=== PATIENT | male | born 1960 | race Caucasian/White ===

== ENCOUNTER 2018-05-16 07:25 | Emergency (ER) | payer BC ==
[2018-05-16 07:44] VITALS: BP 164/87
[2018-05-16] MEDS ORDERED: Tetan/Diph/Pertus SYR(Tdap)* 0.5 ML SYR(BOOSTRIX) use SYR IM ONE (07:47)
[2018-05-16] MEDS ORDERED: Lidocaine 1%* 5 ML VIAL INJ ONE (07:52)
--- NOTE | 2018-05-16 08:26 | UC ---
Laceration HPI - HPI Summary HPI Summary: Patient got up to go to work this morning and was walking through his house in the dark as he usually does and he struck his head on the corner of a door and sustained a laceration to his left eyebrow. No LOC. Denies headache, nausea, dizziness. Not up-to-date tetanus. 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 Laceration Location: Face - LEFT EYEBROW Mechanism Of Injury: Blunt Trauma Onset/Duration: Sudden Onset, Lasting Hours, Still Present Severity: Moderate Pain Intensity: 3 Pain Scale Used: 0-10 Numeric - Allergies/Home Medications Allergies/Adverse Reactions: Allergies Allergy/AdvReac Type Severity Reaction Status Date / Time No Known Allergies Allergy Verified 05/16/18 07:44 Home Medications: Home Medications Reflux Pill 1 tab PO SEE INSTRUCTIONS 05/16/18 [History] PMH/Surg Hx/FS Hx/Imm Hx Endocrine History: Dyslipidemia Other Cancer History: TESTICULAR - Surgical History Surgical History: Yes Surgery Procedure, Year, and Place: right testicle,right kidney age 21 REMOVED AND LYMPH NODES IN ABDOMEN REMOVED - Family History Known Family History: Positive: Non-Contributory - Social History Alcohol Use: Occasionally Substance Use Type: None Smoking Status (MU): Never Smoked Tobacco Review of Systems All Other Systems Reviewed And Are Negative: Yes Constitutional: Positive: Negative Skin: Positive: Other - LACERATION Respiratory: Positive: Negative Cardiovascular: Positive: Negative Gastrointestinal: Positive: Negative Neurological: Positive: Negative Physical Exam Triage Information Reviewed: Yes Appearance: Well-Appearing, No Pain Distress, Well-Nourished Vital Signs: Initial Vital Signs Temp 97 F 05/16/18 07:38 Pulse 64 05/16/18 07:38 Resp 18 05/16/18 07:38 BP 164/87 05/16/18 07:38 Pulse Ox 97 05/16/18 07:38 Vital Signs Reviewed: Yes Eyes: Positive: Conjunctiva Clear ENT: Positive: Hearing grossly normal Neck: Positive: Supple Respiratory: Positive: No respiratory distress, No accessory muscle use Cardiovascular: Positive: Pulses Normal Abdomen Description: Positive: Soft Musculoskeletal: Positive: No Edema, Other: - NO TENDERNESS OVER ORBITAL BONES Neurological: Positive: Alert Psychological: Positive: Age Appropriate Behavior Skin: Positive: Other - 3.5CM STELLATE LACERATION LEFT EYEBROW Laceration Repair - Laceration Repair 1 Description: Stellate Laceration Size After Repair: Length (cm) - 3.5CM, Width (mm) - 0MM, Depth (mm) - 5MM Modified For Repair: No Type Injection: Local Anesthesia Used: 1.0% Lido Irrigation With Pressure Irrigation Device: Yes Closure Material: Sutures - 8 SIMPLE INTERRUPTED Closure Method: Single Layer Suture Of: Skin Suture Type: Prolene - 5-0 Laceration Course/Dx - Diagnosis Provider Diagnosis: Laceration of left eyebrow, Need for Tdap vaccination Discharge - Sign-Out/Discharge Documenting (check all that apply): Patient Departure All imaging exams completed and their final reports reviewed: No Studies - Discharge Plan Condition: Stable Disposition: HOME Patient Education Materials: Facial Laceration (ED) Referrals: Yolanda Reed ABSTRACTOR [Primary Care Provider] - If Needed Additional Instructions: SEEK FOLLOW-UP IF YOU DEVELOP SPREADING REDNESS OF THE SKIN, PURULENT DRAINAGE, FEVER, INCREASED PAIN OR ANY OTHER CONCERNING SYMPTOMS. RETURN TO HAVE YOUR SUTURES REMOVED IN 10 DAYS GO TO THE ED WITHOUT FAIL IF YOU DEVELOP UNEQUAL PUPILS, VISUAL DISTURBANCE, GAIT INSTABILITY, SPEECH DIFFICULTY, NAUSEA/VOMITING, WORSENING HEADACHE, DIZZINESS, CONFUSION, WEAKNESS OR ANY OTHER CONCERNING SYMPTOMS. FOR YOUR INFORMATION: [facility] [phone] (M-F 8AM-4PM) [email or web address] (FOR HELP, INFO OR TO CONNECT WITH A SUPPORT GROUP) TETANUS IMMUNIZATION GIVEN (TDAP): You have been given an immunization against tetanus. Please record this in your records. In general, a booster is needed only once every 10 years. The tetanus shot protects against tetanus or "lockjaw," which is a complication of certain wound infections (the tetanus shot cannot protect against the actual infection). The immunization site may become warm and red due to local reaction. If this occurs, apply warm compresses and take aspirin or ibuprofen to reduce inflammation and discomfort. Return for evaluation if the reaction becomes severe. - Billing Disposition and Condition Condition: STABLE Disposition: Home
== END 2018-05-16 09:44 | disposition home or self-care (01) ==
LOC: UCEAST 07:25
DX: S01.112A Laceration without foreign body of left eyelid and periocular area, initial encounter (principal); Z23 Encounter for immunization; W22.8XXA Striking against or struck by other objects, initial encounter; Y92.9 Unspecified place or not applicable
CPT/HCPCS: 12011; 12013; 90715; 99211; G0463

== ENCOUNTER 2018-05-26 07:00 | Emergency (ER) | payer BC ==
[2018-05-26 07:09] VITALS: BP 167/90
--- NOTE | 2018-05-26 07:17 | UC ---
HPI Wound/Suture Re-check - HPI Summary HPI Summary: The patient is a 57-year-old male that presents here 10 days after laceration repair to his left eyebrow. He denies any problems or concerns. - History Of Current Complaint Chief Complaint: UCLaceration Stated Complaint: STITCH REMOVAL Time Seen by Provider: 05/26/18 07:11 Hx Obtained From: Patient Onset/Duration: Gradual Onset Severity: Mild Pain Intensity: 0 Pain Scale Used: 0-10 Numeric Procedure Type: laceration repair left eyebrow. - Allergies/Home Medications Allergies/Adverse Reactions: Allergies Allergy/AdvReac Type Severity Reaction Status Date / Time No Known Allergies Allergy Verified 05/26/18 07:09 PMH/Surg Hx/FS Hx/Imm Hx Previously Healthy: Yes Cancer History: Other - testicular CA - Surgical History Surgical History: Yes Surgery Procedure, Year, and Place: right testicle,right kidney age 21 REMOVED AND LYMPH NODES IN ABDOMEN REMOVED - Family History Known Family History: Positive: Hypertension, Non-Contributory - Social History Alcohol Use: Occasionally Substance Use Type: None Smoking Status (MU): Never Smoked Tobacco Review of Systems All Other Systems Reviewed And Are Negative: Yes Constitutional: Positive: Negative Skin: Positive: Negative Eyes: Positive: Negative ENT: Positive: Negative Respiratory: Positive: Negative Cardiovascular: Positive: Negative Gastrointestinal: Positive: Negative Genitourinary: Positive: Negative Motor: Positive: Negative Neurovascular: Positive: Negative Musculoskeletal: Positive: Negative Neurological: Positive: Negative Psychological: Positive: Negative Physical Exam Triage Information Reviewed: Yes Appearance: Well-Appearing, No Pain Distress, Well-Nourished Vital Signs: Initial Vital Signs Temp 97.5 F 05/26/18 07:05 Pulse 75 05/26/18 07:05 Resp 18 05/26/18 07:05 BP 167/90 05/26/18 07:05 Pulse Ox 97 05/26/18 07:05 Eyes: Positive: Conjunctiva Clear ENT: Positive: Hearing grossly normal. Negative: Trismus, Muffled voice, Hoarse voice Neck: Positive: Supple, Nontender, No Lymphadenopathy Respiratory: Positive: Lungs clear, Normal breath sounds, No respiratory distress, No accessory muscle use Cardiovascular: Positive: RRR, No Murmur Musculoskeletal: Positive: ROM Intact, No Edema Neurological: Positive: Alert Psychological Exam: Normal Skin Exam: Normal Course/Dx - Diagnosis Provider Diagnosis: Visit for suture removal, Elevated BP without diagnosis of hypertension Discharge - Sign-Out/Discharge Documenting (check all that apply): Patient Departure All imaging exams completed and their final reports reviewed: No Studies - Discharge Plan Condition: Stable Disposition: HOME Referrals: Yolanda Reed NP [Primary Care Provider] - 2 Weeks (BP high today...recheck in 2-12 weeks) Additional Instructions: BP 160/90 needs follow up sunscreen call for any questions return for any problems - Billing Disposition and Condition Condition: STABLE Disposition: Home
== END 2018-05-26 07:27 | disposition home or self-care (01) ==
LOC: UCEAST 07:00
DX: S01.112D Laceration without foreign body of left eyelid and periocular area, subsequent encounter (principal); W45.8XXD Other foreign body or object entering through skin, subsequent encounter; R03.0 Elevated blood-pressure reading, without diagnosis of hypertension